=== PATIENT | female | born 1970 | race Caucasian/White ===

== ENCOUNTER 2022-12-21 10:07 | Emergency (ER) | payer OTHER ==
[~2022-12-21] VITALS: Ht 167.6 cm; Wt 68.2 kg
[2022-12-21] MEDS ORDERED: MECLIZINE HCL 25 MG TABLET PO ONE (11:15)
[2022-12-21] MEDS ORDERED: MECL-160 PO (14:05)
[2022-12-21] MEDS ORDERED: IBUP-1492 PO (14:05)
[2022-12-21 14:17] VITALS: BP 125/76
== END 2022-12-21 14:25 | disposition home or self-care (01) ==
LOC: EMS 10:10
DX: R42 Dizziness and giddiness (principal); M50.90 Cervical disc disorder, unspecified, unspecified cervical region
CPT/HCPCS: 70450; 72125; 93005; 99284